=== PATIENT | female | born 1985 | race Caucasian/White ===

== ENCOUNTER 2016-05-16 18:56 | Emergency (ER) | payer MEDICAID ==
[~2016-05-16] VITALS: Ht 175.3 cm; Wt 70.5 kg
[~2016-05-16 18:56] MED LIST: ACYC200C PO; NAPR250T PO; OMEP-113 PO
[2016-05-16 19:14] VITALS: BP 116/84; PULSE 99; RESP 18; O2SAT 99
[2016-05-16 20:32] LABS: BASOPHILS % (AUTO) 0.5 % (0-3); EOSINOPHILS % (AUTO) 4.1 % (0-5); MONOCYTES % (AUTO) 7.5 % (4-12); Mean Corpuscular Hemoglobin 29.4 pg (27.0-35.0); Mean Corpuscular Volume 88.3 fL (81-100); NEUTROPHILS % (AUTO) 57.7 % (40-74); Platelet Count 285 bil/L (150-400)
[2016-05-16 21:12] LABS: APPEARANCE,URINE HAZY (CLEAR,HAZY); COLOR,URINE YELLOW (YELLOW); PH,URINE 5.5 (5.0-8.0)
[2016-05-16 21:13] LABS: OCCULT BLOOD,URINE LARGE (NEGATIVE); UROBILINOGEN,URINE NORMAL (NORMAL)
--- NOTE | 2016-05-16 21:32 | ED.REPORT ---
HPI- Female Date of Service May 16, 2016 ED Provider: Francis Pearson MD Patient is a 31 y/o female with a history of endometriosis who reports to ER complaining of vaginal bleeding after a recent LEEP procedure. Associated symptoms include cramping pelvic pain, as well as nausea, onset today. Pt also reports low abdominal pain that she describes as a bloated, tightening feeling. She denies vomiting. Nursing Notes Stated Complaint: VAGINAL BLEEDING AND CLOTTING AFTER PROCEDURE Chief Complaint: Female Abdominal Pain Nursing Notes Reviewed: Yes Allergies: Coded Allergies: Sulfa (Sulfonamide Antibiotics) (Verified Allergy, Unknown, itch, 05/16/16) hydrocodone bitartrate (Verified Allergy, Unknown, dry heave, no emesis, ) Scheduled Acyclovir (Acyclovir) 200 Mg Capsule 200 MG PO 5XD Omeprazole Magnesium (Omeprazole) 20 Mg Capsule.dr 20 MG PO DAILY Scheduled PRN Naproxen (Naproxen) 250 Mg Tablet 250 MG PO BID PRN PRN For Pain General Time Seen by MD: 21:31 Chief Complaint Vaginal bleeding... Hx Obtained From: Patient Arrived By: Walk-in Sudden in Onset?: No Onset Occurred: Yesterday Symptom Duration: Since onset Location: : Abdomen lower: Suprapubic Quality: Painful, Pressure Severity: Current: Moderate Severity: Maximum: Moderate Similar Sx Previous: No Past Medical History Past Medical History Anxiety Reports: GERD Past Surgical History LAP x4 Reports: , Cholecystectomy Reports: Tubal ligation Smoking History Current Every Day Smoker Social History Hx substance use Recent loss of partner Other Social History: Lives with children Ambulatory Status Independent Review of Systems Constitutional: Denies: Chills, Fever GI: Reports: Abdominal pain, Nausea, Denies: Vomiting Female: Reports: Pelvic pain, Vaginal bleeding - abnl, Denies: Dysuria, Flank pain, Hematuria Skin: Denies Rash Complete sys rev & neg: except as marked. Physical Exam Initial Vital Signs Vital Signs (First) Date Time Temp Pulse Resp B/P Pulse Ox O2 Delivery O2 Flow Rate FiO2 05/16/16 19:14 36.2 99 18 116/84 99 Initial VS: Reviewed General/Constitutional: Well-developed, Well-nourished Head / Eyes: Atraumatic, Normocephalic, PERRL Neck: Supple, Non-tender, Full range of motion Respiratory: Breath sounds normal, Clear to auscultation, No respiratory distress Abdomen / GI: Soft, Non-tender, No guarding, No rebound, No distention Skin: Warm, Dry, No cyanosis Neurologic: Alert, Oriented, Nonfocal Psychiatric: Mood/affect normal, Behavior normal, Normal thought content Female Genitourinary: External genitalia NL Vaginal Bleeding / Discharge: Positive: Bleeding moderate Cervix Post procedure has a small degree of blood oozing from operative site. Interpretation & Diagnostics Lab Results Interpretation Result Diagram: 05/16/16 2019 05/16/16 2019 Test 05/16/16 20:17 05/16/16 20:19 05/16/16 22:54 Urine Color Yellow (YELLOW) Urine Appearance Hazy (CLEAR,HAZY) Urine pH 5.5 (5.0-8.0) Urine Specific [place] 1.030 (1.003-1.035) Urine Protein Negativemg/dL (NEG,TRACE) Urine Glucose (UA) Negativemg/dL (NEGATIVE) Urine Ketones Negativemg/dL (NEGATIVE) Urine Occult Blood Large (NEGATIVE) Urine Nitrite Negative (NEGATIVE) Urine Bilirubin Negative (NEGATIVE) Urine Urobilinogen Normalmg/dL (NORMAL) Urine Leukocyte Esterase Negative (NEGATIVE) Urine RBC 3-10/hpf (0-2) Urine WBC 0-5/hpf (0-5) Urine Epithelial Cells None/hpf (NONE-MOD) Urine Crystals None seen (NONE SEEN) Urine Bacteria Few/hpf (NONE-FEW) Urine Hyaline Casts None/lpf (NONE) Urine Granular Casts None seen (NONE SEEN) Urine Waxy Casts None seen (NONE SEEN) Urine Red Blood Cell Casts None seen (NONE SEEN) Urine White Blood Cell Casts None seen (NONE SEEN) Urine Mucus None seen (None Seen) Urine Trichomonas None seen (NONE SEEN) Urine Yeast None (NONE SEEN) Urinalysis Comment None Urine Culture Reflexed Indicated White Blood Count 7.8th/mm3 (3.8-10.1) Red Blood Count 4.11mil/mm3 (3.90-5.20) Hemoglobin 12.1g/dL (12.0-15.6) Hematocrit 36.3% (35.0-46.0) Mean Corpuscular Volume 88.3fL (81-100) Mean Corpuscular Hemoglobin 29.4pg (27.0-35.0) Mean Corpuscular Hemoglobin Concent 33.3% (32.0-37.0) Red Cell Distribution Width 12.9% (12.3-15.4) Platelet Count 285bil/L (150-400) Neutrophils (%) (Auto) 57.7% (40-74) Lymphocytes (%) (Auto) 30.1% (14-46) Monocytes (%) (Auto) 7.5% (4-12) Eosinophils (%) (Auto) 4.1% (0-5) Basophils (%) (Auto) 0.5% (0-3) Sodium Level 139mEq/L (134-144) Potassium Level 4.2mEq/L (3.5-5.2) Chloride Level 101mEq/L (97-108) Carbon Dioxide Level 26mmol/L (18-29) Blood Urea Nitrogen 11mg/dL (6-20) Creatinine 0.51mg/dL (0.57-1.00) Estimat Glomerular Filtration Rate 199mL/min (>59) Glucose Level 103mg/dL (60-99) Calcium Level 9.3mg/dL (8.5-10.1) Total Bilirubin 1.0mg/dL (0.0-1.2) Aspartate Amino Transf (AST/SGOT) 16U/L (0-50) Alanine Aminotransferase (ALT/SGPT) 14U/L (0-32) Alkaline Phosphatase 57U/L (25-150) Total Protein 7.0g/dL (6.4-8.4) Albumin 4.3g/dL (3.4-5.0) Re-Eval/Medical Decision Counseled Regarding: Diagnosis, Lab results, Need for follow-up, When/why to return to ED Discharge & Departure Impression: Primary Impression: Abnormal vaginal bleeding Disposition: Home Discharge Condition All VS Reviewed: Yes Condition: Stable Additional Instructions: U have very slow bleeding from the LEEP procedure site. No other abnormality on the pelvic examination was identified though I did take a culture for STD at your request. Follow up tomorrow with Dr. Mcqueen as planned. Referrals: Lea Munson (PCP) Scribe Attestation Portions of this note were transcribed by Braxton Rosa and Mike Daniels. I, personally performed the history, physical exam and medical decision -making; I reviewed and confirmed the accuracy of the information in the transcribed note. Signed by:Mars Greco, 05/17/16 and 0127 copies to: Lea Munson Kirk H MD May 16, 2016 21:32 Braxton Rosa May 16, 2016 22:10 MIKE DANIELS May 17, 2016 01:49
== END 2016-05-16 22:54 | disposition home or self-care (01) ==
LOC: SED 18:56
DX: N93.9 Abnormal uterine and vaginal bleeding, unspecified (principal); K21.9 Gastro-esophageal reflux disease without esophagitis; F17.200 Nicotine dependence, unspecified, uncomplicated; Z98.890 Other specified postprocedural states; Z88.2 Allergy status to sulfonamides; Z88.5 Allergy status to narcotic agent